=== PATIENT | male | born 1965 | race Caucasian/White ===

== ENCOUNTER 2019-10-05 15:07 | Outpatient (CLI) | payer OTHER ==
--- NOTE | 2019-10-05 17:30 | MRI ---
MR OF THE LUMBAR SPINE WITHOUT CONTRAST: 10/05/19 HISTORY: M54.16 lumbar radiculopathy. FINDINGS: For the basis of numbering, the lumbosacral transitional vertebra will be termed L5 for the basis of this exam which is similar to the 2015 numbering system. 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 The conus medullaris terminates near the superior end plate of L1. The aortic contour is nonaneurysma l. No retroperitoneal periaortic adenopathy. No hydronephrosis. Levels are as follows: L1-2: Minimal disc hydration. Low grade disc bulge. There is mild right sided neural foraminal narrow ing. Mild facet arthrosis. L2-3: Mild degenerative disc space height loss and disc desiccation. Small disc bulge. Mild facet art hrosis. Mild bilateral neural foraminal narrowing. L3-4: Moderate degenerative disc space height loss. Large circumferential disc bulge with central miko ular fissure. There are Modic type I and II end plate changes. Superior and inferior end plate Schmor l's nodes. There is severe right and moderate to severe left neural foraminal narrowing with abutment of both exiting nerve roots and a traversing right sided nerve root. L4-5: Moderate degenerative disc space height loss with disc desiccation. Circumferential disc bulge. Mild facet arthrosis. Moderate to severe right and moderate left neural foraminal narrowing with abu tment of both the right exiting and traversing nerve root and the left traversing nerve root. L5-S1: Normal disc. No neural foraminal or spinal canal narrowing. IMPRESSION: Spondylosis of the lumbar spine greatest at L3-4. POS: HOME
== END 2019-10-05 15:08 | disposition home or self-care (01) ==
LOC: BICMRI 15:07
PROVIDERS: ATTEND Anesthesiology Pain Medicine
DX: M47.26 Other spondylosis with radiculopathy, lumbar region (principal)
CPT/HCPCS: 72148

== ENCOUNTER 2022-08-25 09:38 | Outpatient (CLI) | payer BC | END 2022-08-25 09:39 | disposition home or self-care (01) | LOC: BICRAD 09:38 | PROVIDERS: ATTEND Internal Medicine Rheumatology | DX: M19.071 Primary osteoarthritis, right ankle and foot (principal) ==